=== PATIENT | male | born 1990 | race Hispanic/Latino ===

== ENCOUNTER 2022-02-23 20:16 | Emergency (ER) | payer OTHER ==
[~2022-02-23] VITALS: Ht 167.6 cm; Wt 130.2 kg
[2022-02-23 20:42] VITALS: BP 141/71
[2022-02-23] MEDS ORDERED: ACET-2247 PO (20:45)
[2022-02-23] MEDS ORDERED: DSSL PO (20:45)
[2022-02-23] MEDS ORDERED: ACETAMINOPHEN 500 MG TABLET PO ONE (21:00)
== END 2022-02-23 20:51 | disposition home or self-care (01) ==
LOC: EDH 20:16
DX: H92.01 Otalgia, right ear (principal); H61.23 Impacted cerumen, bilateral; Z79.899 Other long term (current) drug therapy

== ENCOUNTER 2022-07-14 02:11 | Emergency (ER) | payer OTHER ==
[~2022-07-14] VITALS: Ht 167.6 cm; Wt 130.2 kg
[~2022-07-14 02:11] MED LIST: ACET-2247 PO; DSSL PO
[2022-07-14 02:40] LABS: BASOPHILS % (AUTO) 0.3 % (0.0-5.0); EOSINOPHILS % (AUTO) 0.6 % (0.0-8.0); HEMATOCRIT 45.6 % (42-54); LYMPHOCYTES % (AUTO) 18.7 % (21.0-51.0); MEAN CORPUSCULAR HEMOGLOBIN 29.3 pg (27.0-33.0); MEAN CORPUSCULAR HGB CONC 33.8 g/dL (32.0-36.0); MEAN CORPUSCULAR VOLUME 86.7 fL (79-99); MONOCYTES % (AUTO) 6.3 % (3.0-13.0); NEUTROPHILS % (AUTO) 73.7 % (40.0-77.0); PLATELET COUNT (AUTO) 306 K/uL (130-400); RED BLOOD CELL COUNT(AUTO) 5.26 MIL/uL (4.50-6.20); RED CELL DISTRIBUTION WIDTH 13.4 % (11.0-15.5); WHITE BLOOD COUNT (AUTO) 17.9 K/uL (4.8-10.8)
[2022-07-14 02:54] LABS: POTASSIUM 3.5 mmol/L (3.5-5.1)
[2022-07-14 02:58] LABS: ALBUMIN 3.5 g/dL (3.5-5.0); TOTAL PROTEIN, SERUM 6.7 g/dL (6.0-8.3)
[2022-07-14] MEDS ORDERED: DiphenhydrAMINE HCL 50 MG/ML VIAL ONE (03:17)
[2022-07-14 03:19] LABS: APPEARANCE,URINE CLEAR (CLEAR); BILIRUBIN,URINE NEGATIVE (NEGATIVE); COLOR,URINE YELLOW (YELLOW); GLUCOSE, URINE (UA) NEGATIVE (NEGATIVE); KETONES,URINE 10 mg/dL (NEGATIVE); LEUKOCYTE ESTERASE ,URINE 250 Leu/uL (NEGATIVE); NITRATE,URINE NEGATIVE (NEGATIVE); OCCULT BLOOD,URINE NEGATIVE (NEGATIVE); PH,URINE 5.5 (5.0-8.0); PROTEIN,URINE 100 mg/dL (NEGATIVE)
[2022-07-14 03:26] LABS: MUCUS,URINE MOD LPF (None Seen); SQUAMOUS EPITHELIAL CELL,UR RARE /HPF (0-2)
[2022-07-14] MEDS ORDERED: ONDANSETRON 4MG INJ IVP ONE (03:30)
[2022-07-14] MEDS ORDERED: DiphenhydrAMINE HCL 50 MG/ML VIAL IV ONE (03:30)
[2022-07-14] MEDS ORDERED: PANTOPRAZOLE 40 MG/VIAL IVP STA (03:30)
[2022-07-14] MEDS ORDERED: 0.9%NACL 1000ML 1,000 ML IV ONE (03:30)
[2022-07-14] MEDS ORDERED: PANT40GR PO (05:45)
[2022-07-14 05:48] VITALS: BP 127/67
== END 2022-07-14 05:52 | disposition home or self-care (01) ==
LOC: EDH 02:11
DX: K29.70 Gastritis, unspecified, without bleeding (principal); E66.9 Obesity, unspecified; Z68.42 Body mass index [BMI] 45.0-49.9, adult
CPT/HCPCS: 99284; 96374; 76705; 96375; 96361; 80053; 83690; 85025; 87088; 81001; 36415; J1200; J7030; J2405; C9113

== ENCOUNTER 2022-07-25 10:36 | Emergency (ER) | payer OTHER ==
[~2022-07-25] VITALS: Ht 167.6 cm; Wt 127.0 kg
[~2022-07-25 10:36] MED LIST changes: +PANT40GR PO
[2022-07-25 11:30] LABS: BASOPHILS % (AUTO) 0.3 % (0.0-5.0); EOSINOPHILS % (AUTO) 0.6 % (0.0-8.0); HEMATOCRIT 43.6 % (42-54); LYMPHOCYTES % (AUTO) 21.2 % (21.0-51.0); MEAN CORPUSCULAR HEMOGLOBIN 29.2 pg (27.0-33.0); MEAN CORPUSCULAR VOLUME 88.4 fL (79-99); MONOCYTES % (AUTO) 5.8 % (3.0-13.0); NEUTROPHILS % (AUTO) 71.6 % (40.0-77.0); PLATELET COUNT (AUTO) 381 K/uL (130-400); RED BLOOD CELL COUNT(AUTO) 4.93 MIL/uL (4.50-6.20); RED CELL DISTRIBUTION WIDTH 13.4 % (11.0-15.5); WHITE BLOOD COUNT (AUTO) 18.4 K/uL (4.8-10.8)
[2022-07-25 11:39] LABS: CREATININE 0.8 mg/dL (0.5-1.5); POTASSIUM 3.9 mmol/L (3.5-5.1)
[2022-07-25 11:44] LABS: ALBUMIN 3.5 g/dL (3.5-5.0); TOTAL PROTEIN, SERUM 8.2 g/dL (6.0-8.3)
[2022-07-25] MEDS ORDERED: LEVO-70 PO (12:50)
[2022-07-25] MEDS ORDERED: IBUP-2070 PO (12:50)
[2022-07-25] MEDS ORDERED: LEVOFLOXACIN 500 MG TABLET PO SCH (13:00)
[2022-07-25] MEDS ORDERED: KETOROLAC 30MG VIAL (30MG/ML) IM ONE (13:00)
[2022-07-25 13:18] LABS: APPEARANCE,URINE CLEAR (CLEAR); BILIRUBIN,URINE NEGATIVE (NEGATIVE); COLOR,URINE YELLOW (YELLOW); GLUCOSE, URINE (UA) NEGATIVE (NEGATIVE); KETONES,URINE NEGATIVE (NEGATIVE); LEUKOCYTE ESTERASE ,URINE NEGATIVE Leu/uL (NEGATIVE); NITRATE,URINE NEGATIVE (NEGATIVE); OCCULT BLOOD,URINE NEGATIVE (NEGATIVE); PROTEIN,URINE 20 mg/dL (NEGATIVE); UROBILINOGEN,URINE 0.2 mg/dL (0.2-1.0)
[2022-07-25 13:27] VITALS: BP 121/53
[2022-07-25 13:32] LABS: BACTERIA,URINE RARE /HPF (None Seen); MUCUS,URINE FEW LPF (None Seen); SQUAMOUS EPITHELIAL CELL,UR RARE /HPF (0-2)
== END 2022-07-25 13:32 | disposition home or self-care (01) ==
LOC: EDH 10:36
DX: N45.1 Epididymitis (principal); N50.811 Right testicular pain; E66.9 Obesity, unspecified; Z79.899 Other long term (current) drug therapy; Z79.1 Long term (current) use of non-steroidal anti-inflammatories (NSAID); Z68.42 Body mass index [BMI] 45.0-49.9, adult
CPT/HCPCS: 99284; 80053; 85025; 81001; 36415; 76870; 96372; J1885

== ENCOUNTER 2023-10-07 07:26 | Inpatient (IN) | payer OTHER ==
[~2023-10-07] VITALS: Ht 170.2 cm; Wt 125.2 kg
[~2023-10-07 07:26] MED LIST changes: +IBUP-2070 PO; +LEVO-70 PO
[2023-10-07] MEDS: PANTOPRAZOLE 40 MG/VIAL IVP ONE (08:18)
[2023-10-07] MEDS: MORPHINE 2 MG SYG IVP ONE (08:18)
[2023-10-07] MEDS: ONDANSETRON 4MG INJ IVP ONE (08:18)
[2023-10-07 08:19] LABS: APPEARANCE,URINE CLEAR (CLEAR); BASOPHILS # (AUTO) 0.06 K/uL (0.00-0.20); BASOPHILS % (AUTO) 0.4 % (0.0-5.0); BILIRUBIN,URINE NEGATIVE (NEGATIVE); COLOR,URINE YELLOW (YELLOW); EOSINOPHILS # (AUTO) 0.02 K/uL (0.00-0.70); EOSINOPHILS % (AUTO) 0.1 % (0.0-8.0); GLUCOSE, URINE (UA) NEGATIVE (NEGATIVE); HEMATOCRIT 46.7 % (42-54); IMMATURE GRANULOCYTE ABSOLUTE 0.05 K/uL (0-1); KETONES,URINE NEGATIVE (NEGATIVE); LEUKOCYTE ESTERASE ,URINE 25 Leu/uL (NEGATIVE); LYMPHOCYTES % (AUTO) 12.9 % (21.0-51.0); MEAN CORPUSCULAR HEMOGLOBIN 29.1 pg (27.0-33.0); MEAN CORPUSCULAR HGB CONC 32.8 g/dL (32.0-36.0); MONOCYTES # (AUTO) 0.7 K/uL (0.1-1.0); MONOCYTES % (AUTO) 4.2 % (3.0-13.0); NEUTROPHILS % (AUTO) 82.1 % (40.0-77.0); NITRATE,URINE NEGATIVE (NEGATIVE); OCCULT BLOOD,URINE NEGATIVE (NEGATIVE); PH,URINE 5.5 (5.0-8.0); PLATELET COUNT (AUTO) 344 K/uL (130-400); PROTEIN,URINE 20 mg/dL (NEGATIVE); RED BLOOD CELL COUNT(AUTO) 5.25 MIL/uL (4.50-6.20); RED CELL DISTRIBUTION WIDTH 13.2 % (11.0-15.5); UROBILINOGEN,URINE 0.2 mg/dL (0.2-1.0); WHITE BLOOD COUNT (AUTO) 15.8 K/uL (4.8-10.8)
[2023-10-07 08:21] LABS: ADD UA MICROSCOPIC YES
[2023-10-07 08:24] LABS: BACTERIA,URINE RARE /HPF (None Seen); MUCUS,URINE RARE LPF (None Seen); SQUAMOUS EPITHELIAL CELL,UR RARE /HPF (0-2); UNCLASSIFIED CRYSTAL 1 /HPF (None Seen)
[2023-10-07 08:25] LABS: POTASSIUM 3.9 mmol/L (3.5-5.1)
[2023-10-07 08:29] LABS: ALBUMIN 4.2 g/dL (3.5-5.0); BILIRUBIN,TOTAL 0.3 mg/dL (0.2-1.0); TOTAL PROTEIN, SERUM 8.2 g/dL (6.0-8.3)
[2023-10-07] MEDS: KETOROLAC 15MG/ML VIAL (15MG/ML) IV PRN (11:39)
[2023-10-07] MEDS: ZOSYN 3.375GM +NS 50ML IV SCH (11:39)
[2023-10-07] MEDS: LACTATED RINGERS 1000ML 1,000 ML IV SCH (11:40)
[2023-10-07 12:09] LABS: HEMOGLOBIN A1C 5.8 % (4.0-6.0); INR <= 0.93 (0.85-1.15); PROTHROMBIN TIME 10.5 SEC (9.6-11.6)
[2023-10-07 12:10] LABS: PARTIAL THROMBOPLASTIN TIME 28.4 SEC (26.3-35.5)
[2023-10-07 13:01] LABS: AMPHET/METH SCREEN,URINE NEGATIVE (NEGATIVE); BARBITURATE SCREEN, URINE NEGATIVE (NEGATIVE); BENZODIAZEPINES SCREEN,URINE NEGATIVE (NEGATIVE); CANNABINOID SCREEN,URINE NEGATIVE (NEGATIVE); COCAINE SCREEN,URINE NEGATIVE (NEGATIVE); OPIATE SCREEN,URINE NEGATIVE (NEGATIVE); PHENCYCLIDINE SCREEN,URINE NEGATIVE (NEGATIVE)
[2023-10-07 16:40] VITALS: BP 118/66; PULSE 55; RESP 18
[2023-10-07] MEDS ORDERED: 0.9%NACL 50ML IV SCH (20:00)
[2023-10-07 20:15] VITALS: BP 128/71; PULSE 62; RESP 19
[2023-10-07] MEDS: FAMOTIDINE 20MG VIAL IV SCH (20:54)
[2023-10-07] MEDS: MORPHINE 2 MG SYG IVP PRN (20:55)
[2023-10-07] MEDS: ZOSYN 3.375GM +NS 50ML IVPB SCH (20:55)
[2023-10-07 23:10] VITALS: BP 136/60; PULSE 59; RESP 21
[2023-10-08] VITALS (22 sets, daily range): BP systolic 103–167; BP diastolic 46–104; PULSE 47–102; RESP 14–20; O2SAT 98
[2023-10-08 09:36] LABS: BASOPHILS # (AUTO) 0.06 K/uL (0.00-0.20); BASOPHILS % (AUTO) 0.6 % (0.0-5.0); EOSINOPHILS # (AUTO) 0.08 K/uL (0.00-0.70); EOSINOPHILS % (AUTO) 0.8 % (0.0-8.0); IMMATURE GRANULOCYTE ABSOLUTE 0.04 K/uL (0-1); LYMPHOCYTES # (AUTO) 3.1 K/uL (1.0-4.8); LYMPHOCYTES % (AUTO) 31.2 % (21.0-51.0); MEAN CORPUSCULAR HEMOGLOBIN 29.3 pg (27.0-33.0); MEAN CORPUSCULAR HGB CONC 32.9 g/dL (32.0-36.0); MEAN CORPUSCULAR VOLUME 89.1 fL (79-99); MONOCYTES % (AUTO) 10.6 % (3.0-13.0); NEUTROPHILS # (AUTO) 5.5 K/uL (1.8-7.7); NEUTROPHILS % (AUTO) 56.4 % (40.0-77.0); PLATELET COUNT (AUTO) 273 K/uL (130-400); RED CELL DISTRIBUTION WIDTH 13.5 % (11.0-15.5); WHITE BLOOD COUNT (AUTO) 9.8 K/uL (4.8-10.8)
[2023-10-08 09:58] LABS: ALBUMIN 3.1 g/dL (3.5-5.0); BILIRUBIN,TOTAL 0.5 mg/dL (0.2-1.0); POTASSIUM 3.4 mmol/L (3.5-5.1); TOTAL PROTEIN, SERUM 6.6 g/dL (6.0-8.3)
[2023-10-08] MEDS: INDOCYANINE GREEN 25 MG VIAL IJ ONE (16:10)
[2023-10-08] MEDS ORDERED: PROPOFOL 10 MG/ML 20ML VIAL IV ONE (16:11)
[2023-10-08] MEDS ORDERED: ROCURONIUM BROMIDE 10MG/1ML 5ML VL ONE ×2 (16:12→16:52)
[2023-10-08] MEDS ORDERED: MIDAZOLAM HCL 1 MG/ML 2ML VIAL ONE (16:12)
[2023-10-08] MEDS ORDERED: FENTANYL CITRATE PF 50 MCG/1 ML 2ML VIAL ONE ×2 (16:12→16:52)
[2023-10-08] MEDS ORDERED: SUCCINYLCHOLINE CHLORIDE 20 MG/ML 10 ML VIAL ONE (16:12)
[2023-10-08] MEDS: BUPIVACAINE/PF 0.5% 30ML VIAL ONE (16:55)
[2023-10-08] MEDS ORDERED: NEOSTIGMINE METHYLSULFATE 1MG/ML IV ONE (17:34)
[2023-10-08] MEDS ORDERED: GLYCOPYRROLATE 0.2 MG/ML 5 ML VIAL ONE (17:34)
[2023-10-08] MEDS: ONDANSETRON 4MG INJ ONE (18:39)
[2023-10-08] MEDS: MEPERIDINE-PF 25 MG/ML SYG ONE (18:41)
[2023-10-08] MEDS: SIMETHICONE 80 MG TAB.CHEW PO SCH (20:19)
[2023-10-08] MEDS: MORPHINE 4 MG SYG IV PRN (21:00)
[2023-10-09 01:15] VITALS: BP 169/93; PULSE 96; RESP 18
[2023-10-09 03:47] VITALS: BP 146/71; PULSE 61; RESP 18
[2023-10-09 05:27] LABS: MEAN CORPUSCULAR HEMOGLOBIN 29.4 pg (27.0-33.0); MEAN CORPUSCULAR HGB CONC 32.4 g/dL (32.0-36.0); MEAN CORPUSCULAR VOLUME 90.7 fL (79-99); RED BLOOD CELL COUNT(AUTO) 4.52 MIL/uL (4.50-6.20); RED CELL DISTRIBUTION WIDTH 13.2 % (11.0-15.5); WHITE BLOOD COUNT (AUTO) 13.9 K/uL (4.8-10.8)
[2023-10-09 06:14] LABS: ALBUMIN 3.3 g/dL (3.5-5.0); BILIRUBIN,TOTAL 0.6 mg/dL (0.2-1.0); CREATININE 0.9 mg/dL (0.5-1.5); POTASSIUM 3.2 mmol/L (3.5-5.1); TOTAL PROTEIN, SERUM 7.1 g/dL (6.0-8.3)
[2023-10-09 08:00] VITALS: BP 150/85; PULSE 95; RESP 20
[2023-10-09 10:26] VITALS: O2SAT 99
[2023-10-09 12:00] VITALS: BP 136/90; PULSE 80; RESP 20
== END 2023-10-09 14:00 | disposition home or self-care (01) | DRG 418 ==
LOC: EDH 07:26 → EDHIP 07:27 → 3DH 16:02
PROVIDERS: ADMIT Internal Medicine; ATTEND Internal Medicine
PROC: 8E0W4CZ Robotic Assisted Procedure of Trunk Region, Percutaneous Endoscopic Approach (ICD-10-PCS; 2023-10-08)
PROC: 0FT44ZZ Resection of Gallbladder, Percutaneous Endoscopic Approach (ICD-10-PCS; principal; 2023-10-08 16:17)
DX: K80.00 Calculus of gallbladder with acute cholecystitis without obstruction (principal); Z68.41 Body mass index [BMI] 40.0-44.9, adult; E66.01 Morbid (severe) obesity due to excess calories; F17.200 Nicotine dependence, unspecified, uncomplicated
CPT/HCPCS: 36415; 74176; 76705; 80053; 80305; 81001; 83036; 83690; 83735; 84443; 84484; 85025; 85027; 85610; 85730; 87088; 93005; C9113; G0378; J0330; J1885; J2175; J2250; J2270; J2405; J2543; J2704; J2710; J3010; J3490; J7120; A4649; A4930; A6206; A6207; C1769; J0665

== ENCOUNTER 2024-03-16 10:10 | Emergency (ER) | payer SELFPAY ==
[~2024-03-16] VITALS: Ht 170.2 cm; Wt 127.5 kg
[~2024-03-16 10:10] MED LIST changes: -ACET-2247 PO; -IBUP-2070 PO; -LEVO-70 PO
[2024-03-16] MEDS ORDERED: CLIN-141 PO (10:54)
[2024-03-16] MEDS ORDERED: IBUP-2070 PO (10:54)
[2024-03-16] MEDS ORDERED: MUPI22O TP (10:54)
[2024-03-16 11:18] LABS: BASOPHILS # (AUTO) 0.05 K/uL (0.00-0.20); BASOPHILS % (AUTO) 0.3 % (0.0-5.0); EOSINOPHILS # (AUTO) 0.09 K/uL (0.00-0.70); EOSINOPHILS % (AUTO) 0.5 % (0.0-8.0); HEMATOCRIT 44.7 % (42-54); IMMATURE GRANULOCYTE ABSOLUTE 0.05 K/uL (0-1); LYMPHOCYTES # (AUTO) 2.7 K/uL (1.0-4.8); LYMPHOCYTES % (AUTO) 14.1 % (21.0-51.0); MEAN CORPUSCULAR HEMOGLOBIN 29.9 pg (27.0-33.0); MEAN CORPUSCULAR HGB CONC 33.8 g/dL (32.0-36.0); MEAN CORPUSCULAR VOLUME 88.5 fL (79-99); MONOCYTES # (AUTO) 1.5 K/uL (0.1-1.0); NEUTROPHILS # (AUTO) 14.6 K/uL (1.8-7.7); NEUTROPHILS % (AUTO) 76.8 % (40.0-77.0); PLATELET COUNT (AUTO) 299 K/uL (130-400); RED BLOOD CELL COUNT(AUTO) 5.05 MIL/uL (4.50-6.20); RED CELL DISTRIBUTION WIDTH 13.1 % (11.0-15.5); WHITE BLOOD COUNT (AUTO) 18.9 K/uL (4.8-10.8)
[2024-03-16 11:21] LABS: CREATININE 0.9 mg/dL (0.5-1.3); POTASSIUM 3.8 mmol/L (3.5-5.1)
[2024-03-16] MEDS: ONDANSETRON 4MG INJ IVP ONE (11:40)
[2024-03-16] MEDS: MORPHINE 4 MG SYG IVP ONE (11:40)
[2024-03-16] MEDS: CLINDAMYCIN IVPB 600MG/50ML 50 ML IV ONE (11:40)
[2024-03-16] MEDS: HYDROMORPHONE 0.5 MG SYG (0.5MG/0.5ML) IVP ONE (13:49)
[2024-03-16] MEDS ORDERED: ACET-2079 PO (14:52)
[2024-03-16 15:09] VITALS: BP 133/89; PULSE 61; RESP 20; O2SAT 98
== END 2024-03-16 15:18 | disposition home or self-care (01) ==
LOC: EDH 10:10
DX: L03.211 Cellulitis of face (principal); L02.01 Cutaneous abscess of face
CPT/HCPCS: 99284; 96365; 10060; 96375; 96366; 80048; 85025; 87076; 87086; 87186; 83605; 36415; 87070; J2405; J2270; J3490; J1170